=== PATIENT | male | born 1950 | race Two or more races ===

== ENCOUNTER → 2024-07-06 | Outpatient (CLI) | payer MEDICAID, SELFPAY ==
--- NOTE | 2024-07-06 06:55 | EKG_ITS ---
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
[2024-07-06 09:15] VITALS: BMI 41.3
[2024-07-06 10:15] LABS: Collection Type, Urine Clean Catch
[2024-07-06 10:25] LABS: Basophils % (Auto) 0 % (0-2.5); Eosinophils # (Auto) 0.7 Thou/mm3 (0.0-0.5); Eosinophils % (Auto) 11 % (0-10); Hematocrit 45.1 % (41.0-53.0); Hemoglobin 15.4 g/dL (13.5-16.0); Immature Granulocytes % (Auto) 0 % (0-0); Immature Granulocytes Auto 0.02 Thou/mm3 (0.00-0.00); Lymphocytes # (Auto) 2.1 Thou/mm3 (1.0-4.8); Lymphocytes % (Auto) 30 % (10-50); Mean Corpuscular HGB Conc 34.1 g/dl (31.0-37.0); Mean Corpuscular Hemoglobin 29.8 pg (25.0-35.0); Mean Corpuscular Volume 87 fL (80-100); Monocytes # (Auto) 0.6 Thou/mm3 (0.0-0.8); Monocytes % (Auto) 8 % (0-12); Neutrophils # (Auto) 3.5 Thou/mm3 (1.8-7.7); Neutrophils % (Auto) 51 % (37-80); Nucleated Red Blood Cell % 0 /100 WBC (0); Platelet Count 238 Thou/mm3 (140-440); RDW Standard Deviation 43.2 fL (35.1-43.9); Red Blood Count 5.17 Miln/mm3 (4.50-5.90); White Blood Count 6.9 Thou/mm3 (3.8-10.6)
[2024-07-06 10:31] LABS: Bilirubin,Urine Negative (Negative); Blood,Urine Negative (Negative); Clarity,Urine Clear (Clear/Hazy); Color,Urine Lt-Yellow (Lt Yel-Yel); Glucose, Urine Negative (Negative); Ketones,Urine Negative (Negative); Leukocyte Esterase,Urine Negative (Negative); Nitrite,Urine Negative (Negative); PH,Urine 5.5 (5.0-7.0); Protein,Urine Negative (Neg - Trace); RBC,Urine 2 /hpf (0-3); Specific Gravity,Urine 1.016 (1.001-1.035); Squamous Epithelial Cell,Urine 2 /hpf (0-5); Urobilinogen,Urine Negative mg/dL (0.0-1.0); WBC,Urine < 1 /hpf (0-5)
[2024-07-06 10:40] LABS: Alanine Aminotransferase 21 U/L (10-49); Albumin, Serum 4.2 gm/dL (3.4-4.8); Albumin/Globulin Ratio 1.5 (1.2-2.2); Alkaline Phosphatase 85 U/L (46-116); Anion Gap 10 (7-16); Aspartate Amino Transferase 14 U/L (0-34); BUN/Creatinine Ratio 13 Ratio (12-20); Bilirubin,Total 0.8 mg/dL (0.3-1.2); Blood Urea Nitrogen 10 mg/dL (9-23); Calcium 9.2 mg/dL (8.3-10.6); Calcium (Corrected) 9.2 mg/dL (8.5-10.1); Carbon Dioxide 24.4 mMol/L (20.0-31.0); Chloride 104 mMol/L (98-107); Creatinine (Component) 0.8 mg/dL (0.6-1.3); Estimated Creatinine Clearance 94.8 mL/min (>60); Globulin 2.8 gm/dL (2.3-3.5); Glucose 149 mg/dL (74-106); Osmolality,Calculated 277 (275-295); Sodium 138 mMol/L (136-145); eGFR > 60 See Note
--- NOTE | 2024-07-07 13:10 | ESHP_ITS ---
RE: PAM ALVAREZ : 1950 DATE OF ADMISSION: 07/08/2024 HISTORY OF PRESENT ILLNESS: The patient is a 73-year-old gentleman, [place]- speaking with elevated PSA, which is 6.4. He has nocturia four to six times. The patient voids very little. He has a slow urinary stream. No blood in the urine. PAST SURGICAL HISTORY: Appendectomy and cholecystectomy. PAST MEDICAL HISTORY: The patient has a history of hypertension. No history of diabetes. SOCIAL HISTORY: The patient has nine children. HOME MEDICATIONS: He takes lisinopril and tamsulosin 0.4 mg at bedtime. ALLERGIES: NONE KNOWN. PHYSICAL EXAMINATION: HEENT: Normal. NECK: Supple. LUNGS: Clear. CARDIOVASCULAR: Heart sounds are normal. ABDOMEN: Soft. GENITOURINARY: Phallus is normal. Testes are down in the scrotum. RECTAL: Reveals moderately enlarged prostate, which feels benign to palpation. IMPRESSION: 1. Prostatism. 2. Prostatic obstruction. 3. Elevated PSA of 6.4. PLAN: Cystoscopy and transrectal prostatic ultrasound with ultrasound-guided prostatic needle biopsy. Planned procedure, risks and complications have been discussed with the patient. The patient has understood them and agreed to proceed. DT: 12:09:08 TT: 13:08:00 Ref: [id number] - TID: [id number]
== END | disposition home or self-care (01) ==
LOC: SLAB 07-11 07:21
PROVIDERS: Anesthesiology; PCP Family Medicine; Referring Provider Surgery; Visit Provider Surgery
DX: N40.1 Benign prostatic hyperplasia with lower urinary tract symptoms (principal)
CPT/HCPCS: 36415; 80053; 81001; 85025; 93005

== ENCOUNTER 2024-08-30 10:50 | Day surgery (SDC) | payer MEDICAID, SELFPAY ==
[2024-08-29 13:05] VITALS: BMI 40.3
[2024-08-29 13:44] LABS: Collection Type, Urine Clean Catch; WBC,Urine 0 /hpf (0-5)
[2024-08-29 14:26] LABS: Basophils % (Auto) 1 % (0-2.5); Eosinophils # (Auto) 0.5 Thou/mm3 (0.0-0.5); Eosinophils % (Auto) 7 % (0-10); Hematocrit 45.2 % (41.0-53.0); Hemoglobin 15.1 g/dL (13.5-16.0); Immature Granulocytes % (Auto) 0 % (0-0); Immature Granulocytes Auto 0.01 Thou/mm3 (0.00-0.00); Lymphocytes # (Auto) 2.3 Thou/mm3 (1.0-4.8); Lymphocytes % (Auto) 31 % (10-50); Mean Corpuscular HGB Conc 33.4 g/dl (31.0-37.0); Mean Corpuscular Hemoglobin 29.4 pg (25.0-35.0); Mean Corpuscular Volume 88 fL (80-100); Monocytes # (Auto) 0.8 Thou/mm3 (0.0-0.8); Monocytes % (Auto) 11 % (0-12); Neutrophils # (Auto) 3.9 Thou/mm3 (1.8-7.7); Neutrophils % (Auto) 51 % (37-80); Nucleated Red Blood Cell % 0 /100 WBC (0); Platelet Count 229 Thou/mm3 (140-440); RDW Standard Deviation 42.6 fL (35.1-43.9); Red Blood Count 5.13 Miln/mm3 (4.50-5.90); White Blood Count 7.5 Thou/mm3 (3.8-10.6)
[2024-08-29 14:32] LABS: Bilirubin,Urine Negative (Negative); Blood,Urine Negative (Negative); Clarity,Urine Clear (Clear/Hazy); Color,Urine Lt-Yellow (Lt Yel-Yel); Glucose, Urine Negative (Negative); Ketones,Urine Negative (Negative); Leukocyte Esterase,Urine Negative (Negative); Nitrite,Urine Negative (Negative); Protein,Urine Negative (Neg - Trace); RBC,Urine < 1 /hpf (0-3); Specific Gravity,Urine 1.012 (1.001-1.035); Squamous Epithelial Cell,Urine 1 /hpf (0-5); Urobilinogen,Urine Negative mg/dL (0.0-1.0)
[2024-08-29 14:48] LABS: Alanine Aminotransferase 16 U/L (10-49); Albumin, Serum 4.2 gm/dL (3.4-4.8); Albumin/Globulin Ratio 1.5 (1.2-2.2); Alkaline Phosphatase 87 U/L (46-116); Anion Gap 7 (7-16); Aspartate Amino Transferase 17 U/L (0-34); BUN/Creatinine Ratio 14 Ratio (12-20); Bilirubin,Total 0.8 mg/dL (0.3-1.2); Blood Urea Nitrogen 13 mg/dL (9-23); Calcium 8.8 mg/dL (8.3-10.6); Calcium (Corrected) 8.8 mg/dL (8.5-10.1); Carbon Dioxide 23.7 mMol/L (20.0-31.0); Chloride 108 mMol/L (98-107); Creatinine (Component) 0.9 mg/dL (0.6-1.3); Estimated Creatinine Clearance 83.2 mL/min (>60); Globulin 2.8 gm/dL (2.3-3.5); Glucose 80 mg/dL (74-106); Osmolality,Calculated 276 (275-295); Potassium 4.2 mMol/L (3.4-5.1); Sodium 139 mMol/L (136-145); eGFR > 60 See Note
[2024-08-30] VITALS (8 sets, daily range): BP systolic 67–162; BP diastolic 44–95; PULSE 68–94; RESP 13–20; TEMP 36.3–36.4; O2SAT 95–98; BMI 40.5
--- NOTE | 2024-08-30 07:46 | ESHP_ITS ---
RE: PAM QUILES : 1950 DATE OF ADMISSION: 08/29/2024 HISTORY OF PRESENT ILLNESS: A 73-year-old gentleman who was referred to me, he is a [place]-speaking male with elevated PSA of 6.4. He has nocturia four to six times. He has a slowing of urinary stream. There is no history of gross hematuria. PAST SURGICAL HISTORY: Appendectomy, and cholecystectomy. SOCIAL HISTORY: The patient has 9 children. PAST MEDICAL HISTORY: He has history of hypertension. No history of diabetes. ALLERGIES: NONE KNOWN. MEDICATIONS: He takes lisinopril and tamsulosin 0.4 mg every day. PHYSICAL EXAMINATION: HEENT: Normal. NECK: Supple. LUNGS: Clear. CARDIOVASCULAR: Heart sounds are normal. ABDOMEN: Soft without any organomegaly. No guarding. No rigidity. Abdomen is obese. GENITOURINARY: Phallus is normal. Testes are down in scrotum. RECTAL: Revealed moderately enlarged smooth prostate without any nodules. IMPRESSION: 1. Prostatic obstruction. 2. Prostatism. 3. Elevated PSA of 6.4. PLAN: Cystoscopy and transrectal prostatic ultrasound with ultrasound-guided prostatic needle biopsy. Planned procedure, risks, and complications have been discussed with the patient. The patient has understood them and agreed to proceed. DT: 14:54:28 TT: 16:04:00 Ref: [id number] - TID: [id number]
--- NOTE | 2024-08-30 12:46 | SUR.PHASEII ---
1246: Pt. AAOx4, breathing unlabored, pt. hypotensive, anesthesia provider at bedside administering medication to help bring up BP, no dressing in place, no active bleed noted, report received from Paula SONI, Soraya KAUFMAN, and Carla SOLER.
[2024-08-30] MEDS: ACETAMINOPHEN IVPB 1,000 MG/100 ML VIAL 250 MG IV (13:15)
--- NOTE | 2024-08-30 13:45 | SUR.PHASEII ---
1345: Pt. AAOx4, vitals stable, breathing unlabored, no complaint of pain or nausea, no dressing in place, no active bleed noted, pt. tolerated sips of water well, pt. ambulated to wheelchair with steady gait and no assist, no complications. Gave discharge instructions to the pt. and his ride, both verbalized understanding and had no further questions. Pt. left with all personal belongings.
--- NOTE | 2024-08-30 20:27 | ESOP_ITS ---
RE: PAM QUILES : 1950 DATE OF OPERATION: 08/30/2024 PREOPERATIVE DIAGNOSES: Prostatism, prostatic obstruction, elevated PSA of 6.4. POSTOPERATIVE DIAGNOSES: Prostatism, prostatic obstruction, elevated PSA of 6.4. PROCEDURES PERFORMED: Cystoscopy, urethral dilatation for urethral stricture, transrectal prostatic ultrasound, and ultrasound-guided prostatic needle biopsy. ANESTHESIA: Monitored anesthesia. INDICATION: The patient is a 73-year-old gentleman with a history of prostatism, nocturia x6. He has an elevated PSA of 6.4. Rectally, he has a moderately large smooth prostate without any hard nodules. He is on tamsulosin 0.4 mg at bedtime. He was now scheduled to have cystoscopy and transrectal prostatic ultrasound with ultrasound-guided prostatic needle biopsy in view of his elevated PSA of 6.4. Planned procedure, risks, and complications have been discussed with the patient. The patient understood them and agreed to proceed. DESCRIPTION OF PROCEDURE: After the patient was brought to the operating table under adequate monitored anesthesia and dorsal lithotomy position, parts were prepped and draped in the usual fashion. Cystoscopy was then carried out, which revealed adequate urethral meatus, normal-appearing urethra. There was a urethral stricture in the area of bulbar urethra, which was easily dilated. Prostate was visualized, which is a moderately large bilobed prostate. Residual urine 2 ounces is yellow and clear and was sent for urine cultures sensitivity examination. There are no intravesical stones or tumors. Ureteral orifices are found to be normal in position and appearance. Scope was withdrawn. The urethra was dilated. The patient was then turned in left lateral position. Transrectal prostatic ultrasound was carried out and biopsies were obtained from both lobes under ultrasound guidance. Prostatic volume was measured at 71.1 cubic cm. The patient tolerated the entire procedure well and left the room in good condition. DT: 12:54:08 TT: 20:26:00 Ref: [id number] - TID: [id number]
== END 2024-08-30 13:45 | disposition home or self-care (01) ==
PROVIDERS: Anesthesiology; PCP Family Medicine; Referring Provider Surgery; Visit Provider Surgery
PROC: (CPT 55700; principal; 2024-08-30 14:00)
PROC: 0TJB8ZZ Inspection of Bladder, Via Natural or Artificial Opening Endoscopic (ICD-10-PCS; CPT 52000; 2024-08-30 14:00)
DX: N40.1 Benign prostatic hyperplasia with lower urinary tract symptoms (principal); I10 Essential (primary) hypertension; R97.20 Elevated prostate specific antigen [PSA]
CPT/HCPCS: 52281; 55700; 36415; 76942; 80053; 81001; 85025; 87086; A4217; A4649; J0131; J0694; J2250; J2704; J3010